=== PATIENT | female | born 1965 | race African-American/Black ===

== ENCOUNTER 2020-08-12 07:54 | Day surgery (SDC) | payer OTHER ==
[2020-08-11 08:32] VITALS: BMI 47.5
[2020-08-12] MEDS ORDERED: Scopolamine 1.5 mg/72 hour Patch ONE (09:37)
[2020-08-12] MEDS ORDERED: AFRIN NASAL MIST 15 ML BOT ONE ×2 (09:37→11:27)
[2020-08-12] MEDS ORDERED: Lidocaine 1% w/Epinephrine 1:100K 20 ML VIAL ONE (11:27)
[2020-08-12] MEDS ORDERED: Ferric Subsulfate (ASTRINGYN) 8 GM VIAL ONE (11:27)
[2020-08-12] MEDS ORDERED: Famotidine/PF 20 mg/2ml Vial ONE (11:29)
[2020-08-12] MEDS ORDERED: Fentanyl 100 MCG/2 ML VIAL ONE ×2 (11:31→12:38)
[2020-08-12] MEDS ORDERED: Dexmedetomidine 200 MCG/2 ML VIAL ONE (11:52)
[2020-08-12] MEDS ORDERED: Dexamethasone 20 MG/5 ML VIAL ONE (12:01)
[2020-08-12] MEDS ORDERED: Metoclopramide HCl 10 MG/2 ML VIAL ONE (12:01)
[2020-08-12] MEDS ORDERED: Lidocaine 1% PF 5 ML VIAL ONE (12:01)
[2020-08-12] MEDS ORDERED: PROPOFOL 200 MG/20 ML VIAL ONE (12:01)
[2020-08-12] MEDS ORDERED: Ondansetron PF 4 MG/2 ML Vial ONE (12:01)
[2020-08-12] MEDS ORDERED: Hydrocodone-Acetamin 15 ML UDCUP ONE (14:34)
== END 2020-08-12 15:10 | disposition home or self-care (01) ==
LOC: SDC 07:54
PROVIDERS: ATTEND Otolaryngology Plastic Surgery within the Head & Neck
PROC: 09TL7ZZ Resection of Nasal Turbinate, Via Natural or Artificial Opening (ICD-10-PCS; principal; 2020-08-12)
PROC: 0CTQXZZ Resection of Adenoids, External Approach (ICD-10-PCS; principal; 2020-08-12)
PROC: 0CTPXZZ Resection of Tonsils, External Approach (ICD-10-PCS; principal; 2020-08-12)
DX: J35.03 Chronic tonsillitis and adenoiditis (principal); J34.3 Hypertrophy of nasal turbinates; J34.89 Other specified disorders of nose and nasal sinuses; G47.33 Obstructive sleep apnea (adult) (pediatric); J35.8 Other chronic diseases of tonsils and adenoids; I10 Essential (primary) hypertension; K21.9 Gastro-esophageal reflux disease without esophagitis; E66.01 Morbid (severe) obesity due to excess calories; Z68.42 Body mass index [BMI] 45.0-49.9, adult; Z79.899 Other long term (current) drug therapy; Z98.84 Bariatric surgery status
CPT/HCPCS: 36415; 85014; 88304; J1100; J2405; J2704; J2765; J3010; S0028